=== PATIENT | female | born 1950 | race Caucasian/White ===

== ENCOUNTER → 2019-05-18 10:11 | Outpatient (BNVA) | payer MEDICARE, OTHER, SELFPAY | PROVIDERS: Family Provider Nurse Practitioner Family; PCP Family Medicine; Visit Provider Family Medicine | DX: E03.9 Hypothyroidism, unspecified (principal); E11.9 Type 2 diabetes mellitus without complications; E55.9 Vitamin D deficiency, unspecified | CPT/HCPCS: 80053; 80061; 82044; 82306; 83036; 83735; 84443; 85025 ==

== ENCOUNTER → 2019-11-15 11:44 | Outpatient (BNVA) | payer MEDICARE, OTHER, SELFPAY | PROVIDERS: PCP Family Medicine; Visit Provider Family Medicine | DX: E11.9 Type 2 diabetes mellitus without complications (principal); I10 Essential (primary) hypertension; E55.9 Vitamin D deficiency, unspecified; E53.8 Deficiency of other specified B group vitamins | CPT/HCPCS: 80053; 80061; 82043; 82306; 82607; 83036; 84443; 85025 ==

== ENCOUNTER → 2019-12-01 09:39 | Outpatient (BNVA) | payer MEDICARE, OTHER, SELFPAY | PROVIDERS: PCP Family Medicine; Visit Provider Family Medicine | DX: M25.552 Pain in left hip (principal); M25.562 Pain in left knee; M17.12 Unilateral primary osteoarthritis, left knee; M16.12 Unilateral primary osteoarthritis, left hip | CPT/HCPCS: 73502; 73562 ==

== ENCOUNTER 2020-01-06 10:15 | Outpatient (CLI) | payer MEDICARE, OTHER, SELFPAY ==
--- NOTE | 2020-01-06 10:23 | MM_ITS ---
WS: [id number] BILATERAL SCREENING DIGITAL MAMMOGRAM WITH CAD HISTORY: SCREENING COMPARISON: 12/08/2018 and 09/26/2017 Bilateral CC and MLO views submitted. Computer aided detection analyzed. Breast composition: There are scattered areas of fibroglandular density. No suspicious masses, microc alcifications or architectural distortion. Biopsy clip at 6:00 RIGHT breast. MM/[place] [id number] IMPRESSION: BI-RADS: 2-Benign FOLLOW UP: 1 Year Follow-up
== END 2020-01-06 10:16 | disposition home or self-care (01) ==
LOC: RADSHAW 10:20
PROVIDERS: PCP Family Medicine; Visit Provider Family Medicine
DX: Z12.31 Encounter for screening mammogram for malignant neoplasm of breast (principal)
CPT/HCPCS: 77067

== ENCOUNTER → 2020-02-29 10:12 | Outpatient (BNVA) | payer MEDICARE, OTHER, SELFPAY | PROVIDERS: PCP Family Medicine; Visit Provider Family Medicine | DX: E11.9 Type 2 diabetes mellitus without complications (principal); D64.9 Anemia, unspecified | CPT/HCPCS: 80053; 83036; 83540; 85025 ==

== ENCOUNTER → 2020-05-31 09:01 | Outpatient (BNVA) | payer MEDICARE, OTHER, SELFPAY | PROVIDERS: PCP Family Medicine; Visit Provider Family Medicine | DX: I10 Essential (primary) hypertension (principal); E03.9 Hypothyroidism, unspecified; E55.9 Vitamin D deficiency, unspecified; E78.2 Mixed hyperlipidemia; E11.9 Type 2 diabetes mellitus without complications | CPT/HCPCS: 80053; 80061; 82306; 82607; 83036; 84443; 85025 ==

== ENCOUNTER → 2020-07-03 13:05 | Outpatient (BNVA) | payer MEDICARE, OTHER, SELFPAY | PROVIDERS: PCP Family Medicine; Visit Provider Family Medicine | DX: D64.9 Anemia, unspecified (principal) | CPT/HCPCS: 82746; 85025 ==

== ENCOUNTER → 2020-09-04 11:32 | Outpatient (BNVA) | payer MEDICARE, OTHER, SELFPAY | PROVIDERS: PCP Family Medicine; Visit Provider Family Medicine | DX: D64.9 Anemia, unspecified (principal); E03.9 Hypothyroidism, unspecified; I10 Essential (primary) hypertension; E11.9 Type 2 diabetes mellitus without complications | CPT/HCPCS: 80053; 80061; 83036; 85025 ==

== ENCOUNTER → 2020-12-04 10:33 | Outpatient (BNVA) | payer MEDICARE, OTHER, SELFPAY | PROVIDERS: PCP Family Medicine; Visit Provider Family Medicine | DX: E03.9 Hypothyroidism, unspecified (principal); E11.9 Type 2 diabetes mellitus without complications; E78.2 Mixed hyperlipidemia; I10 Essential (primary) hypertension | CPT/HCPCS: 80053; 80061; 83036; 84443; 85025 ==

== ENCOUNTER → 2020-12-06 09:24 | Outpatient (BNVA) | payer MEDICARE, OTHER, SELFPAY | PROVIDERS: PCP Family Medicine; Visit Provider Family Medicine | DX: E78.2 Mixed hyperlipidemia (principal); M54.31 Sciatica, right side; M25.551 Pain in right hip; E03.9 Hypothyroidism, unspecified; E11.9 Type 2 diabetes mellitus without complications; I10 Essential (primary) hypertension; Z71.89 Other specified counseling; M25.559 Pain in unspecified hip | CPT/HCPCS: 73502 ==

== ENCOUNTER 2020-12-20 06:00 | Outpatient (RCR) | payer MEDICARE, OTHER, SELFPAY | END 2021-01-14 23:59 | disposition home or self-care (01) | LOC: TPT 06:00 | PROVIDERS: PCP Family Medicine; Referring Provider Family Medicine; Visit Provider Family Medicine | DX: M54.31 Sciatica, right side (principal) | CPT/HCPCS: 97110; 97162; 97530 ==

== ENCOUNTER 2021-01-15 06:00 | Outpatient (RCR) | payer MEDICARE, OTHER, SELFPAY | END 2021-02-13 23:59 | disposition home or self-care (01) | LOC: TPT 06:00 | PROVIDERS: PCP Family Medicine; Visit Provider Family Medicine | DX: M54.31 Sciatica, right side (principal) | CPT/HCPCS: 97110; 97140; 97530 ==

== ENCOUNTER 2021-02-14 06:00 | Outpatient (RCR) | payer MEDICARE, OTHER, SELFPAY | END 2021-02-28 23:59 | disposition home or self-care (01) | LOC: TPT 06:00 | PROVIDERS: PCP Family Medicine; Visit Provider Family Medicine | DX: M54.31 Sciatica, right side (principal) | CPT/HCPCS: 97110; 97164; 97530 ==

== ENCOUNTER → 2021-03-19 09:37 | Outpatient (BNVA) | payer MEDICARE, OTHER, SELFPAY | PROVIDERS: PCP Family Medicine; Visit Provider Family Medicine | DX: E03.9 Hypothyroidism, unspecified (principal); E78.2 Mixed hyperlipidemia; I10 Essential (primary) hypertension; E11.9 Type 2 diabetes mellitus without complications; E53.8 Deficiency of other specified B group vitamins; E55.9 Vitamin D deficiency, unspecified | CPT/HCPCS: 80053; 80061; 82043; 83036; 85025 ==

== ENCOUNTER 2021-04-03 10:43 | Outpatient (CLI) | payer MEDICARE, OTHER, SELFPAY ==
--- NOTE | 2021-04-03 10:54 | MM_ITS ---
WS: [id number] Exam: [place] [id number] Date/Time of Exam: 04/03/2021 10:54 AM Reason For Exam: SCREENING VIEWS: MLO and CC views both breasts. Comparison made with prior exam of 09/16/2017, 12/08/2018 and 01/06/2020. Findings: There is a questionable new 3 mm nodule seen in the central right breast at anterior depth on the CC view only. No architectural distortion or suspicious calcification in either breast. No new findings in the left breast. Fatty Compression spot imaging of the right breast in the CC view recommended for further workup. MM/[place] [id number] Impression: BI-RADS: 0-Incomplete: Need additional imaging evaluation FOLLOW-UP: Need Additional Imaging This mammogram was also analyzed by the Computer Aided Detection System R2 [employer].
== END 2021-04-03 10:44 | disposition home or self-care (01) ==
LOC: RADSHAW 10:51
PROVIDERS: PCP Family Medicine; Visit Provider Family Medicine
DX: Z12.31 Encounter for screening mammogram for malignant neoplasm of breast (principal)
CPT/HCPCS: 77067

== ENCOUNTER 2021-06-01 07:46 | Outpatient (CLI) | payer MEDICARE, OTHER, SELFPAY ==
--- NOTE | 2021-06-01 07:59 | MM_ITS ---
WS: [id number] RIGHT 3D TOMOSYNTHESIS DIGITAL MAMMOGRAPHY WITH CAD CLINICAL INFORMATION: NODULE HISTORY: Biopsy clip RIGHT breast COMPARISON: April 03, 2021 TECHNIQUE: 4 views of the right breast were obtained. FINDINGS: Scattered fibroglandular densities of the right breast. Tiny faint 3 mm nodule central RIGHT breast i s stable. This may represent a small intramammary lymph node. Ultrasound is pending. ULTRASOUND BREAST RIGHT TECHNIQUE: Ultrasound right breast focused area of concern. CLINICAL INFORMATION: NODULE COMPARISON: None. FINDINGS: Ultrasound RIGHT breast 11:00-100 position. Normal underlying parenchymal tissue. No cystic or solid lesions. No suspicious findings. Recommend return to annual screening mammography. MM/[place] [id number] IMPRESSION: BI-RADS: 2-Benign FOLLOW UP: 1 Year Follow-up Recommend return to annual screening mammography.
== END 2021-06-01 07:47 | disposition home or self-care (01) ==
LOC: RADSHAW 07:49
PROVIDERS: PCP Family Medicine; Visit Provider Family Medicine
DX: N63.15 Unspecified lump in the right breast, overlapping quadrants (principal)
CPT/HCPCS: 76642; 77061

== ENCOUNTER → 2021-06-18 08:56 | Outpatient (BNVA) | payer MEDICARE, OTHER, SELFPAY | PROVIDERS: PCP Family Medicine; Visit Provider Family Medicine | DX: E11.9 Type 2 diabetes mellitus without complications (principal); I10 Essential (primary) hypertension; E03.9 Hypothyroidism, unspecified; E78.2 Mixed hyperlipidemia; E55.9 Vitamin D deficiency, unspecified; E53.8 Deficiency of other specified B group vitamins | CPT/HCPCS: 80053; 80061; 82306; 82607; 83036; 84443; 85025 ==

== ENCOUNTER → 2021-09-14 08:20 | Outpatient (BNVA) | payer MEDICARE, OTHER, SELFPAY | PROVIDERS: PCP Family Medicine; Visit Provider Nurse Practitioner Family | DX: E11.9 Type 2 diabetes mellitus without complications (principal); I10 Essential (primary) hypertension | CPT/HCPCS: 80053; 83036 ==

== ENCOUNTER → 2021-12-17 08:40 | Outpatient (BNVA) | payer MEDICARE, OTHER, SELFPAY | PROVIDERS: PCP Family Medicine; Visit Provider Nurse Practitioner Family | DX: N18.9 Chronic kidney disease, unspecified (principal); E03.9 Hypothyroidism, unspecified; E78.5 Hyperlipidemia, unspecified; I10 Essential (primary) hypertension; E11.9 Type 2 diabetes mellitus without complications; E55.9 Vitamin D deficiency, unspecified | CPT/HCPCS: 80053; 80061; 82306; 83036; 84443; 85025 ==

== ENCOUNTER → 2022-06-17 10:12 | Outpatient (BNVA) | payer MEDICARE, OTHER, SELFPAY | PROVIDERS: PCP Family Medicine; Visit Provider Nurse Practitioner Family | DX: E03.9 Hypothyroidism, unspecified (principal); E78.5 Hyperlipidemia, unspecified; I10 Essential (primary) hypertension; E11.9 Type 2 diabetes mellitus without complications; E53.8 Deficiency of other specified B group vitamins; E55.9 Vitamin D deficiency, unspecified; D64.9 Anemia, unspecified | CPT/HCPCS: 80053; 80061; 82043; 82306; 82607; 82746; 83036; 83540; 84443; 85025 ==

== ENCOUNTER 2022-06-25 13:05 | Outpatient (CLI) | payer MEDICARE, SELFPAY ==
--- NOTE | 2022-06-25 13:13 | MM_ITS ---
WS: [id number] BILATERAL SCREENING DIGITAL TOMOSYNTHESIS MAMMOGRAM WITH CAD HISTORY: Screening. COMPARISON: 06/01/2021, 04/03/2021, 01/06/2020 Bilateral CC and MLO views with tomosynthesis and synthetic mammography submitted. Computer aided det ection analyzed. Breast composition: There are scattered areas of fibroglandular density. No suspicious masses, microc alcifications or architectural distortion. Biopsy clip central mid RIGHT breast. Previously described very small nodule in the medial breast has significantly decreased in size since 06/01/2021. No suspi cious masses are identified. MM/[place] [id number] IMPRESSION: BI-RADS: 2-Benign FOLLOW UP: 1 Year Follow-up
--- NOTE | 2022-06-25 13:30 | XR_ITS ---
WS: [id number] SCREENING DEXA SCAN [place] CLINICAL INFORMATION: Z78.0 - Asymptomatic menopausal state COMPARISON: None. FINDINGS: The L1-L4 bone mineral density measures 1.3. This corresponds to a T score score of 1.2 and Z score o f 2.4. Left forearm bone mineral density measures 0.78. This corresponds to a T score of -1.0 and Z score of 0.8. Right femoral neck bone mineral density measures 0.93. This corresponds to a T score -0.6 and Z score of 0.5. XR/XR DEXA axial skeleton* [id number] IMPRESSION: Normal bone mineralization lumbar spine. Normal bone mineralization RIGHT femor al neck. Osteopenia LEFT forearm at the lower end of the range Patient's FRAX calculated 10 year probability for major osteoporotic fracture i s 8.5 % and osteoporotic hip fracture is 0.9%.
== END 2022-06-25 13:06 | disposition home or self-care (01) ==
PROVIDERS: PCP Nurse Practitioner Family; Visit Provider Nurse Practitioner Family
DX: Z78.0 Asymptomatic menopausal state (principal); Z12.39 Encounter for other screening for malignant neoplasm of breast
CPT/HCPCS: 77063; 77067; 77080

== ENCOUNTER → 2022-08-09 08:57 | Outpatient (BNVA) | payer MEDICARE, OTHER, SELFPAY | PROVIDERS: PCP Nurse Practitioner Family; Visit Provider Nurse Practitioner Family | DX: L57.0 Actinic keratosis (principal); L57.8 Other skin changes due to chronic exposure to nonionizing radiation; L85.3 Xerosis cutis | CPT/HCPCS: 17000; 17003; 99213 ==

== ENCOUNTER → 2022-10-10 08:50 | Outpatient (BNVA) | payer MEDICARE, OTHER, SELFPAY | PROVIDERS: PCP Nurse Practitioner Family; Visit Provider Nurse Practitioner Family | DX: L81.4 Other melanin hyperpigmentation (principal); D22.5 Melanocytic nevi of trunk | CPT/HCPCS: 17000; 99213 ==

== ENCOUNTER → 2022-12-17 08:47 | Outpatient (BNVA) | payer MEDICARE, OTHER, SELFPAY | PROVIDERS: PCP Nurse Practitioner Family; Visit Provider Nurse Practitioner Family | DX: E11.9 Type 2 diabetes mellitus without complications (principal); E78.5 Hyperlipidemia, unspecified; I10 Essential (primary) hypertension; E03.9 Hypothyroidism, unspecified | CPT/HCPCS: 80053; 80061; 83036; 83735; 84443; 85025 ==

== ENCOUNTER → 2023-01-27 13:43 | Outpatient (BNVA) | payer MEDICARE, OTHER, SELFPAY | PROVIDERS: PCP Nurse Practitioner Family; Visit Provider Nurse Practitioner Family | DX: L57.0 Actinic keratosis (principal); L81.4 Other melanin hyperpigmentation; D22.5 Melanocytic nevi of trunk; L57.8 Other skin changes due to chronic exposure to nonionizing radiation; L82.1 Other seborrheic keratosis | CPT/HCPCS: 17000; 99213 ==

== ENCOUNTER → 2023-03-24 09:44 | Outpatient (BNVA) | payer MEDICARE, OTHER, SELFPAY | PROVIDERS: PCP Nurse Practitioner Family; Visit Provider Nurse Practitioner Family | DX: I10 Essential (primary) hypertension (principal); E11.9 Type 2 diabetes mellitus without complications; N18.9 Chronic kidney disease, unspecified; E03.9 Hypothyroidism, unspecified; E78.5 Hyperlipidemia, unspecified | CPT/HCPCS: 80053; 80061; 83036; 83735; 84443 ==

== ENCOUNTER → 2023-05-28 10:50 | Outpatient (BNVA) | payer MEDICARE, OTHER, SELFPAY | PROVIDERS: PCP Nurse Practitioner Family; Visit Provider Nurse Practitioner Family | DX: L57.0 Actinic keratosis (principal); L81.4 Other melanin hyperpigmentation; L57.8 Other skin changes due to chronic exposure to nonionizing radiation; D22.39 Melanocytic nevi of other parts of face | CPT/HCPCS: 17000; 99213 ==

== ENCOUNTER → 2023-06-30 08:31 | Outpatient (BNVA) | payer MEDICARE, OTHER, SELFPAY | PROVIDERS: PCP Nurse Practitioner Family; Visit Provider Nurse Practitioner Family | DX: E11.9 Type 2 diabetes mellitus without complications (principal); E78.2 Mixed hyperlipidemia | CPT/HCPCS: 80053; 80061; 82607; 83036; 83735; 84443; 85025 ==

== ENCOUNTER → 2023-07-02 09:36 | Outpatient (BNVA) | payer MEDICARE, OTHER, SELFPAY | PROVIDERS: PCP Nurse Practitioner Family; Visit Provider Nurse Practitioner Family | DX: E11.9 Type 2 diabetes mellitus without complications (principal); I10 Essential (primary) hypertension; E78.5 Hyperlipidemia, unspecified; K21.9 Gastro-esophageal reflux disease without esophagitis; E03.9 Hypothyroidism, unspecified; E61.2 Magnesium deficiency | CPT/HCPCS: 82043 ==

== ENCOUNTER 2023-07-10 08:31 | Outpatient (CLI) | payer MEDICARE, OTHER, SELFPAY ==
--- NOTE | 2023-07-10 08:40 | MM_ITS ---
WS: [id number] BILATERAL SCREENING DIGITAL TOMOSYNTHESIS MAMMOGRAM WITH CAD HISTORY: SCREENING COMPARISON: 06/25/2022, 06/01/2021, 09/16/2017 Bilateral CC and MLO views with tomosynthesis and synthetic mammography submitted. Computer aided det ection analyzed. Breast composition: There are scattered areas of fibroglandular density. No suspicious masses, microc alcifications or architectural distortion. Biopsy clip in the central RIGHT breast. No associated mas s. IMPRESSION: MM/[place] [id number] BI-RADS: 2-Benign FOLLOW UP: 1 Year Follow-up
== END 2023-07-10 08:32 | disposition home or self-care (01) ==
LOC: RAD 08:31
PROVIDERS: PCP Nurse Practitioner Family; Visit Provider Nurse Practitioner Family
DX: Z12.31 Encounter for screening mammogram for malignant neoplasm of breast (principal)
CPT/HCPCS: 77063; 77067

== ENCOUNTER 2023-09-24 15:22 | Outpatient (CLI) | payer MEDICARE, OTHER, SELFPAY ==
--- NOTE | 2023-09-24 15:30 | XR_ITS ---
WS: [id number] Left knee, 3 views, 09/24/2023 Clinical Data: M25.562 - Pain in left knee Comparison: Left knee, 12/01/2019 Findings: There is minimal medial joint compartment narrowing. There is irregularity of the articular surface o f the lateral tibial plateau with a small spur. The posterior patella shows prominent spurs and irregularity. There are no fractures or dislocations. The soft tissues are normal. XR/XR knee LT 3V* [id number] Impression: Mild osteoarthritis of the left knee. Kellgren-Ilan Classification: grade 2 (minimal): definite osteophytes and p ossible joint space narrowing
== END 2023-09-24 15:23 | disposition home or self-care (01) ==
LOC: RAD 15:24
PROVIDERS: PCP Nurse Practitioner Family; Visit Provider Nurse Practitioner Family
DX: M25.762 Osteophyte, left knee (principal); M24.10 Other articular cartilage disorders, unspecified site
CPT/HCPCS: 17004; 73562; 99213

== ENCOUNTER → 2023-12-22 08:42 | Outpatient (BNVA) | payer MEDICARE, OTHER, SELFPAY | PROVIDERS: PCP Nurse Practitioner Family; Visit Provider Nurse Practitioner Family | DX: E78.2 Mixed hyperlipidemia (principal); E11.9 Type 2 diabetes mellitus without complications; E03.9 Hypothyroidism, unspecified | CPT/HCPCS: 80053; 80061; 83036; 84443; 85025 ==

== ENCOUNTER → 2024-01-13 13:48 | Outpatient (BNVA) | payer MEDICARE, OTHER, SELFPAY | PROVIDERS: PCP Nurse Practitioner Family; Visit Provider Nurse Practitioner Family | DX: L57.8 Other skin changes due to chronic exposure to nonionizing radiation (principal); L57.0 Actinic keratosis; D48.5 Neoplasm of uncertain behavior of skin; L81.4 Other melanin hyperpigmentation; D22.39 Melanocytic nevi of other parts of face | CPT/HCPCS: 11104; 17000; 99213 ==

== ENCOUNTER → 2024-05-14 09:35 | Outpatient (BNVA) | payer MEDICARE, OTHER, SELFPAY | PROVIDERS: PCP Nurse Practitioner Family; Visit Provider Nurse Practitioner Family | DX: M67.441 Ganglion, right hand (principal); L57.8 Other skin changes due to chronic exposure to nonionizing radiation; L81.4 Other melanin hyperpigmentation; D22.39 Melanocytic nevi of other parts of face; L57.0 Actinic keratosis | CPT/HCPCS: 17000; 99213 ==

== ENCOUNTER → 2024-06-21 09:16 | Outpatient (BNVA) | payer MEDICARE, OTHER, SELFPAY | PROVIDERS: PCP Nurse Practitioner Family; Visit Provider Nurse Practitioner Family | DX: E55.9 Vitamin D deficiency, unspecified (principal); E11.9 Type 2 diabetes mellitus without complications | CPT/HCPCS: 80053; 80061; 82306; 82607; 83036; 84443; 85025 ==

== ENCOUNTER 2024-07-12 10:34 | Outpatient (CLI) | payer MEDICARE, OTHER, SELFPAY ==
--- NOTE | 2024-07-12 10:39 | MM_ITS ---
WS: [id number] BILATERAL SCREENING DIGITAL TOMOSYNTHESIS MAMMOGRAM WITH CAD HISTORY: SCREENING COMPARISON: 07/10/2023, 06/25/2022, Bilateral CC and MLO views with tomosynthesis and synthetic mammography submitted. Computer aided detection analyzed. Breast composition: There are scattered areas of fibroglandular density. No suspicious masses, microcalcifications or architectural distortion. Biopsy clip 6:00 RIGHT breast. Small cluster of benign calcifications in the anterior RIGHT breast. No suspicious grouping of calcifications or distortion. MM/MM scr BI tomosynthesis [id number] IMPRESSION: BI-RADS: 2 - Benign. FOLLOW UP: 1 Year Follow-up
== END 2024-07-12 10:35 | disposition home or self-care (01) ==
LOC: RAD 10:35
PROVIDERS: PCP Nurse Practitioner Family; Visit Provider Nurse Practitioner Family
DX: Z12.31 Encounter for screening mammogram for malignant neoplasm of breast (principal); R92.323 Mammographic fibroglandular density, bilateral breasts; R92.1 Mammographic calcification found on diagnostic imaging of breast
CPT/HCPCS: 77063; 77067

== ENCOUNTER → 2024-08-18 08:48 | Outpatient (BNVA) | payer MEDICARE, OTHER, SELFPAY | PROVIDERS: PCP Nurse Practitioner Family; Visit Provider Student in an Organized Health Care Education/Training Program | DX: M25.741 Osteophyte, right hand (principal); M67.441 Ganglion, right hand; M67.431 Ganglion, right wrist | CPT/HCPCS: 73130; 99204 ==

== ENCOUNTER 2024-08-26 07:48 | Outpatient (CLI) | payer MEDICARE, OTHER, SELFPAY ==
--- NOTE | 2024-08-26 08:00 | CTR_ITS ---
PROCEDURE INFORMATION: Exam: CT Right Upper Extremity Without Contrast, Hand Exam date and time: 08/26/2024 7:54 AM Age: 74 years old Clinical indication: Ganglion cyst on posterior right hand, surgical planning. Surgical planning for metacarpal boss TECHNIQUE: Imaging protocol: Computed tomography of the right upper extremity without contrast. Exam focused on the hand. Radiation optimization: All CT scans at this facility use at least one of these dose optimization techniques: automated exposure control; mA and/or kV adjustment per patient size (includes targeted exams where dose is matched to clinical indication); or iterative reconstruction. COMPARISON: CR XR hand RT min 3V* [id number] 08/18/2024 8:50 AM RADIATION DOSE METRICS: Total DLP (mGy-cm): 122.72 FINDINGS: Bones/joints: The scapholunate and lunotriquetral intervals are maintained. No chondrocalcinosis is seen. Severe osteoarthritis at the 1st carpometacarpal joint. [id number] osteoarthritis of the interphalangeal joint of thumb. Soft tissues: There is a fluid density structure involving the extensor carpi radialis brevis tendon which could represent a ganglion cyst or tenosynovitis. This structure measures 2.4 x 1.7 x 1.0 cm and appears to have septations. No significant subcutaneous soft tissue swelling. CT/CT hand RT wo con* [id number] IMPRESSION: 1. There is a fluid density structure involving the extensor carpi radialis brevis tendon which could represent a ganglion cyst or tenosynovitis. This structure appears to have septations. Consider MRI of the wrist with and without contrast to further assess. 2. Severe osteoarthritis at the 1st carpometacarpal joint. 3. Snot-cu-qhbdudpz osteoarthritis of the interphalangeal joint of thumb.
== END 2024-08-26 07:49 | disposition home or self-care (01) ==
PROVIDERS: PCP Nurse Practitioner Family; Visit Provider Student in an Organized Health Care Education/Training Program
DX: M25.741 Osteophyte, right hand (principal); M67.441 Ganglion, right hand
CPT/HCPCS: 73200

== ENCOUNTER 2024-10-07 09:17 | Day surgery (SDC) | payer MEDICARE, OTHER, SELFPAY ==
[2024-10-07] VITALS (10 sets, daily range): BP systolic 122–157; BP diastolic 64–81; PULSE 49–60; RESP 16–18; TEMP 36.3–36.8; O2SAT 96–100; BMI 29.2
--- NOTE | 2024-10-07 | XR_ITS ---
WS: [email or web address] Right hand, C-arm fluoroscopy views, 10/07/2024 Clinical Data: PAL PICS Comparison: Right hand, 08/18/2024 Findings: Dr. Salomon removed a ganglion cyst from the dorsum of the right wrist. XR/XR hand RT min 3V* [id number] Impression: Removal of ganglion cyst from right wrist.
[2024-10-07] MEDS: acetaminophen 1,000 MG/100 ML PIGGYBACK 400 MG IV (10:37)
--- NOTE | 2024-10-07 10:48 | ANES.PREANE2 ---
Pre-Anesthetic Assessment Height/Weight: Height 1.6 m Weight 74.843 kg Temp Pulse Resp BP Pulse Ox O2 Del Method 98.3 F 60 18 138/81 100 Room Air 10/07/24 09:57 10/07/24 09:57 10/07/24 09:57 10/07/24 09:57 10/07/24 09:57 10/07/24 10:04 Operation Date: 10/07/24 13:15 Proposed Procedures p Excision Of dorsal Ganglion Cyst and metacarpal boss excision(Right) - Jose Umm, Familial anesthetic complications: None Was Beta Melody taken within 24 hours: N/A Was Clonidine taken within 24 hours: N/A Last intake: Intake Last Liquid Date 10/06/24 Last Liquid Time 22:00 Last Solid Date 10/06/24 Last Solid Time 19:00 Social No alcohol and No tobacco Exam alert, oriented x 3, clear to auscultation bilaterally and regular rate & rhythm Airway Mallampati: Class I Dentition: caps CV/HEM Hypertension GI Gastroesophageal Reflux Disease Metabolic Hyperlipidemia and Thyroid Disease Anesthetic Plan ASA status: 3 Anesthesia: General Other: LMA Risk of > 500 ml blood loss (7ml/kg in children): No Medications/Allergies Home Medications ?Medication ?Instructions ?Recorded ?Confirmed ?Last Taken ?Type aspirin 81 mg tablet,delayed 81 mg PO DAILY 05/20/19 10/06/24 10/06/24 History release (Adult Low Dose Aspirin) mecobalamin (vitamin B12) 1,000 1,000 mcg sublingual DAILY 05/20/19 10/06/24 10/06/24 History mcg disintegrating tablet,sublingual multivitamin 1 tab PO DAILY 05/20/19 10/06/24 10/06/24 History albuterol sulfate 90 mcg/actuation 2 puff inhalation QID PRN 12/19/22 10/06/24 Unknown Rx aerosol inhaler (Ventolin HFA) shortness of breath or wheezing #8.5 grams omega-3s 350 im-ule-nkl-other 1 cap PO DAILY 12/19/22 10/06/24 10/06/24 History yrayt1k-esis oil 600 mg capsule triamcinolone acetonide 0.1 % 1 applic topical BID PRN rash 14 12/19/22 10/06/24 Unknown Rx topical cream days #80 grams blood sugar diagnostic (Accu-Chek #100 ea 06/23/24 10/06/24 Unknown Rx Cesilia Plus test strips) famotidine 20 mg tablet (Pepcid) 20 mg PO BID #180 tabs 06/23/24 10/06/24 10/06/24 Rx magnesium chloride 64 mg 64 mg PO DAILY #90 tabs 06/23/24 10/06/24 10/06/24 Rx (magnesium chloride) tablet,delayed release (Mag 64) metoprolol tartrate 100 mg tablet 100 mg PO BID #180 tabs 06/23/24 10/06/24 10/06/24 10:30 Rx amlodipine 5 mg tablet 5 mg PO BEDTIME 10/06/24 10/06/24 10/05/24 History atorvastatin 40 mg tablet (Lipitor) 40 mg PO QPM 10/06/24 10/06/24 10/05/24 History levothyroxine 88 mcg tablet 88 mcg PO DAILY 10/06/24 10/06/24 10/06/24 History losartan 100 1 tab PO DAILY 10/06/24 10/06/24 10/06/24 History mg-hydrochlorothiazide 12.5 mg tablet metformin 500 mg tablet 1,000 mg PO BID 10/06/24 10/06/24 10/06/24 History Allergies Allergy/AdvReac Type Severity Reaction Status Date / Time Penicillins Allergy Unknown unknown Verified 10/06/24 12:36 Sulfa (Sulfonamide Allergy Unknown unknown Verified 10/06/24 12:36 Antibiotics) adhesive tape Allergy ALGY-Rash Verified 10/07/24 09:49 NORA Inhibitors AdvReac Intermediate nora cough Verified 10/06/24 12:36 Current Medications Generic Name Dose Route Start Last Admin Trade Name Freq PRN Reason Stop Dose Admin Sodium Chloride 1,000 mls @ 30 mls/hr 10/07/24 09:45 10/07/24 10:18 Sodium Chloride 0.9% IV 10/08/24 09:44 30 mls/hr .Q24H CORBIN Administration PFSH Anesthesia Medical History Macular hole Follows with Dr. Cannon Hypothyroidism Hyperlipidemia Essential hypertension Diabetes mellitus Surgical History Hx of bilateral cataract extraction History of left hip replacement Hx of partial thyroidectomy Hx of carpal tunnel repair Family History Sister Cancer Diabetes Grandmother Cancer Mother Cancer Diabetes Father CAD (coronary artery disease) Other Hyperlipidemia Hypertension Lupus Social History Smoking and tobacco/nicotine status: former use of tobacco/nicotine Alcohol intake: current Alcohol intake frequency: few times a week Substance/Drug Use: never Marital status: Single Current occupational status: retired
--- NOTE | 2024-10-07 10:48 | W.PM.OPSFHP ---
Same Day Surgery H&P Indication for Procedure/HPI DATE OF PROCEDURE: October 07, 2024 CHIEF COMPLAINT/INDICATIONFOR SURGICAL PROCEDURE: Right dorsal hand ganglion cyst and metacarpal boss PREOP DIAGNOSIS: Right dorsal hand ganglion cyst and metacarpal boss PLANNED PROCEDURE: Operation Date: 10/07/24 13:15 Proposed Procedures p Excision Of dorsal Ganglion Cyst and metacarpal boss excision(Right) - Jose Ceiba, DO Medications/Allergies* Home Medications ?Medication ?Instructions ?Recorded ?Confirmed ?Type aspirin 81 mg tablet,delayed 81 mg PO DAILY 05/20/19 10/06/24 History release (Adult Low Dose Aspirin) mecobalamin (vitamin B12) 1,000 1,000 mcg sublingual DAILY 05/20/19 10/06/24 History mcg disintegrating tablet,sublingual multivitamin 1 tab PO DAILY 05/20/19 10/06/24 History omega-3s 350 yd-lgi-pxp-other 1 cap PO DAILY 12/19/22 10/06/24 History wzyzw6a-wdrh oil 600 mg capsule amlodipine 5 mg tablet 5 mg PO BEDTIME 10/06/24 10/06/24 History atorvastatin 40 mg tablet (Lipitor) 40 mg PO QPM 10/06/24 10/06/24 History levothyroxine 88 mcg tablet 88 mcg PO DAILY 10/06/24 10/06/24 History losartan 100 1 tab PO DAILY 10/06/24 10/06/24 History mg-hydrochlorothiazide 12.5 mg tablet metformin 500 mg tablet 1,000 mg PO BID 10/06/24 10/06/24 History Allergies/Adverse Reactions Allergy/AdvReac Type Severity Reaction Status Date / Time Penicillins Allergy Unknown unknown Verified 10/06/24 12:36 Sulfa (Sulfonamide Allergy Unknown unknown Verified 10/06/24 12:36 Antibiotics) adhesive tape Allergy ALGY-Rash Verified 10/07/24 09:49 NORA Inhibitors AdvReac Intermediate nora cough Verified 10/06/24 12:36 Current Medications: Generic Name Dose Route Start Last Admin Trade Name Freq PRN Reason Stop Dose Admin Sodium Chloride 1,000 mls @ 30 mls/hr 10/07/24 09:45 10/07/24 10:18 Sodium Chloride 0.9% IV 10/08/24 09:44 30 mls/hr .Q24H CORBIN Administration Pertinent History/Comorbid Conditions* Medical History (Updated 08/22/24 @ 22:12 by Jose Salomon DO) Macular hole Follows with Dr. Cannon Hypothyroidism Hyperlipidemia Essential hypertension Diabetes mellitus Surgical History (Updated 12/19/21 @ 09:41 by BRISSA Bazan) Hx of bilateral cataract extraction History of left hip replacement Hx of partial thyroidectomy Hx of carpal tunnel repair Family History (Updated 06/05/20 @ 08:44 by Eliana Nunes LPN) Diabetes Sister Mother Lupus CAD (coronary artery disease) Father Hyperlipidemia Cancer Sister Grandmother Mother Hypertension Social History Smoking and tobacco/nicotine status: former use of tobacco/nicotine Alcohol intake: current Alcohol intake frequency: few times a week Substance/Drug Use: never Marital status: Single Current occupational status: retired Pertinent Exam Findings alert, oriented x 3, operative site marked and procedure specific exam findings Please refer to detail orthopedic examination on 08/18/2024 listed below: Right Hand Exam: -Positive CMC grind -Mild CMC TTP -No first dorsal compartment TTP -Large palpable ganglion cyst to right dorsal hand -Palpable bony prominence over the base of the 2nd and 3rd metacarpal over the ganglion cyst with tenderness to palpation Recommendations Risks and benefits of procedure reviewed and Patient/family agree to proceed Surgery/Procedure today Other Plans: Plan to proceed to the OR today for right dorsal hand ganglion cyst excision and metacarpal boss excision. We did have a CT scan this was not read by the radiologist that there was a metacarpal boss but clearly evident she has prominence and metacarpal bossing just underneath this cyst. As a result we will proceed with a right dorsal hand ganglion cyst excision and metacarpal boss excision to coplane out any bony prominences. Once again we detailed the ins and outs procedure the risk benefits complication alternatives surgery and understand the risk of surgery patient like to proceed with surgical intervention. All questions have been answered at this time. Coding Level of Care Code Acute Code for Maryjozara Blackburn
[2024-10-07] MEDS: ROPivacaine 0.5% SDV 30 mL 25 MG INJECTION (12:17)
[2024-10-07] MEDS: lidocaine-epi 1% 20 mL INJ 5 ML INJECTION (12:18)
[2024-10-07] MEDS: sodium bicarbonate 4.2% 0.5 mEq/mL SDV 5mL 1 MEQ INTRADERMA (12:22)
--- NOTE | 2024-10-07 12:41 | P.BOP_ITS ---
Date of Procedure: [October 07, 2024] Surgeon: [Dr. Salomon DO] Commercial Lines Account Executive(s): [N/A] Procedure(s) performed: [Right hand Excision Of dorsal Ganglion Cyst Right hand metacarpal boss excision] Findings of the procedure(s): [Right hand dorsal ganglion cyst and has metacarpal boss procedure went well and as planned] Estimated blood loss: [5 mL] Specimen(s) removed: [Ganglion cyst removed and sent to lab] Post-operative diagnosis: [Right hand dorsal ganglion cyst and has metacarpal boss]
--- NOTE | 2024-10-07 12:45 | P.OP_ITS ---
Operative Report Date of procedure: October 07, 2024 Surgeon: Jose Salomon DO Procedure: Preoperative diagnosis: Postoperative diagnosis: Procedure Right?dorsal?wrist ganglion?cyst excision Specimens removed/disposition: Right?dorsal?wrist ganglion?cyst excised and sent for pathology Surgeon: Jose Salomon DO Estimated blood loss: 2mL Tourniquet time 29 minutes IV fluids: See anesthesia record Complications: None Findings: See operative report narrative Condition: stable Disposition: same day Brief History: Patient's been worked up in the outpatient setting and findings consistent with preoperative diagnosis.? Patient has a right?dorsal?wrist ganglion?cyst.? Patient has attempted conservative treatment and this has become significantly painful.? He is ready to go off to college and would like to have this addressed.? He had an MRI ordered by his primary care provider and findings consistent with ganglion?cyst.? We talked about treatment options as far as nonoperative and operative intervention.? At this point time patient like a more permanent solution in the lowest chance of recurrence and as result through shared decision making we agreed to proceed with a right?dorsal?wrist ganglion?cyst excision.? Patient understands risk benefits complication alternatives surgical nonsurgical treatment options.? Understanding risk of surgery patient agrees to proceed.? All questions answered.? Consent obtained in the office. Procedure: Patient seen evaluate in the preoperative holding area.? Consent was signed and reviewed with patient.? All questions were answered at that time.? Correct extremity was then marked.? Once seen evaluated by anesthesia patient was then brought back to the operative suite.? Patient was then placed in supine position all bony prominences well-padded patient was properly secured to the bed.? An armboard was then applied for the right upper extremity.? A nonsterile tourniquet was applied to the right upper extremity arm.? Patient then underwent anesthesia per the anesthesia department.? Once appropriately anesthetized the right upper extremity was then prepped and draped in standard orthopedic fashion.? Final timeout performed.? Patient received appropriate preoperative antibiotics. Under sterile aseptic technique I began with local anesthetic for my preplanned surgical site.? Then I utilized an Esmarch tourniquet to exsanguinate the right upper extremity to 250 mmHg Patient had a large soft mobile ganglion?cyst which a incision was then centered longitudinally directly over the?cyst over the?dorsal?aspect of the right wrist. ? sharp scalpel incision was made through skin and subcutaneous tissue.? I then switched to dissection scissors and spread longitudinally to identify branches of the superficial radial nerve.? These were protected throughout the case.? I immediately encountered the ganglion?cyst which was just distal to the extensor retinaculum and between the third and fourth?dorsal?compartments.? I then protected the tendons and identified the ganglion?cyst subsequently dissected circumferentially all the way to the base which was connected to the?dorsal?capsule.? This was then transected at the base with bipolar electrocautery.? I did have to excise some of the?dorsal?capsule that communicated with the?cyst this had a broad connection and?cyst stalk to the?dorsal?capsule. I utilized bipolar electrocautery to to seal off the?dorsal?capsule and prevent any further?cyst recurrence.??Cyst was then sent for pathology.? I then thoroughly irrigated the wound bed tourniquet was deflated.? Hemostasis was satisfactory with bipolar electrocautery.? I then closed the incision in layered fashion with 3-0 Vicryl suture subcutaneously and running horizontal mattress nylon stitch for skin.? Xeroform over the incisions 4 x 4's ABD soft roll and a volar splint was applied.? Patient was then awakened from anesthesia and taken back in stable condition. Disposition: Patient taken back in stable condition recovering well.? Patient will receive appropriate discharge instructions as well as pain medication postoperatively.? Patient placed in a volar splint.? We will follow-up with in the orthopedic office in 2 weeks.? Patient understands of any questions or concerns and contact the office.?
--- NOTE | 2024-10-07 12:46 | PM.PACU ---
PACU note Narrative: Patient is a 74-year-old female that underwent a right hand ganglion cyst excision and metacarpal boss excision. Patient transferred to PACU in stable condition. Pain is well controlled. Dressing and splint on hand is dry and in place. Patient's fingers are warm and well-perfused. Patient can wiggle fingers. normal cap refill under 2 seconds. Patient has normal elbow range of motion. Sensation to fingers intact. Exam: awake Disposition: discharged
== END 2024-10-07 14:13 | disposition home or self-care (01) ==
PROVIDERS: PCP Nurse Practitioner Family; Visit Provider Student in an Organized Health Care Education/Training Program
PROC: (CPT 26230; principal; 2024-10-07 13:05)
DX: M67.441 Ganglion, right hand (principal); M95.8 Other specified acquired deformities of musculoskeletal system; I10 Essential (primary) hypertension; K21.9 Gastro-esophageal reflux disease without esophagitis; E78.5 Hyperlipidemia, unspecified; E03.9 Hypothyroidism, unspecified; Z79.82 Long term (current) use of aspirin; Z79.84 Long term (current) use of oral hypoglycemic drugs; Z87.891 Personal history of nicotine dependence
CPT/HCPCS: 26230; 25111; 36416; 73130; 76000; 82962; 88304; 88307; 88311; J0131; J1100; J1885; J2405; J2704; J2795; J3010; J3490; J7030; J9999

== ENCOUNTER → 2024-10-26 13:17 | Outpatient (BNVA) | payer MEDICARE, OTHER, SELFPAY | PROVIDERS: PCP Nurse Practitioner Family; Visit Provider Physician Assistant | DX: Z98.890 Other specified postprocedural states (principal) | CPT/HCPCS: 99024 ==

== ENCOUNTER 2024-10-29 09:58 | Outpatient (RCR) | payer MEDICARE, OTHER, SELFPAY | END 2024-11-14 23:59 | disposition home or self-care (01) | LOC: SOT 09:58 | PROVIDERS: Visit Provider Physician Assistant | DX: Z98.890 Other specified postprocedural states (principal) | CPT/HCPCS: 97022; 97110; 97140; 97165 ==

== ENCOUNTER → 2024-11-08 09:58 | Outpatient (BNVA) | payer MEDICARE, OTHER, SELFPAY | PROVIDERS: Visit Provider Nurse Practitioner Family | DX: L57.8 Other skin changes due to chronic exposure to nonionizing radiation (principal); L81.4 Other melanin hyperpigmentation; L82.1 Other seborrheic keratosis; D22.5 Melanocytic nevi of trunk; L57.0 Actinic keratosis | CPT/HCPCS: 17004; 99213 ==

== ENCOUNTER 2024-11-15 05:00 | Outpatient (RCR) | payer MEDICARE, OTHER, SELFPAY | END 2024-12-14 23:59 | disposition home or self-care (01) | LOC: SOT 05:00 | PROVIDERS: Visit Provider Physician Assistant | DX: Z98.890 Other specified postprocedural states (principal) | CPT/HCPCS: 97022; 97035; 97110; 97140 ==

== ENCOUNTER → 2024-12-16 09:19 | Outpatient (BNVA) | payer MEDICARE, OTHER, SELFPAY | PROVIDERS: PCP Nurse Practitioner Family; Visit Provider Nurse Practitioner Family | DX: E03.9 Hypothyroidism, unspecified (principal); E78.2 Mixed hyperlipidemia; E11.9 Type 2 diabetes mellitus without complications; Z79.899 Other long term (current) drug therapy | CPT/HCPCS: 80053; 80061; 82043; 82306; 83036; 84443; 85025 ==

== ENCOUNTER → 2024-12-20 14:53 | Outpatient (BNVA) | payer MEDICARE, OTHER, SELFPAY | PROVIDERS: PCP Nurse Practitioner Family; Visit Provider Nurse Practitioner Family | DX: L57.8 Other skin changes due to chronic exposure to nonionizing radiation (principal); L81.4 Other melanin hyperpigmentation; L82.1 Other seborrheic keratosis; D22.5 Melanocytic nevi of trunk; D48.5 Neoplasm of uncertain behavior of skin; L57.0 Actinic keratosis | CPT/HCPCS: 11102; 17000; 99213 ==

== ENCOUNTER → 2024-12-22 13:43 | Outpatient (BNVA) | payer MEDICARE, OTHER, SELFPAY | PROVIDERS: PCP Nurse Practitioner Family; Visit Provider Physician Assistant | DX: Z98.890 Other specified postprocedural states (principal) | CPT/HCPCS: 73130; 99024 ==